=== PATIENT | male | born 1970 | race Caucasian/White ===

== ENCOUNTER → 2019-11-08 | Outpatient (CLI) | payer BC | LOC: RAD 09:27 | DX: M17.11 Unilateral primary osteoarthritis, right knee (principal) ==

== ENCOUNTER → 2019-11-20 | Outpatient (CLI) | payer BC | LOC: VAS 09:56 | DX: Z01.812 Encounter for preprocedural laboratory examination (principal); Z98.890 Other specified postprocedural states; Z86.718 Personal history of other venous thrombosis and embolism ==

== ENCOUNTER → 2020-12-10 | Outpatient (CLI) | payer BC | LOC: RAD 13:50 | DX: Z13.6 Encounter for screening for cardiovascular disorders (principal); M79.662 Pain in left lower leg ==